=== PATIENT | male | born 1995 | race Caucasian/White ===

== ENCOUNTER 2021-04-29 10:58 | Emergency (ER) | payer MEDICAID, SELFPAY ==
[~2021-04-29] VITALS: Ht 165.1 cm; Wt 92.5 kg
[2021-04-29] MEDS ORDERED: CALCIUM CHLORIDE 1 GM/10 ML DISP.SYRIN (14 mEq Ca++/SYR) IVP ONE (10:59)
[2021-04-29] MEDS ORDERED: EPINEPHrine JECT 0.1 MG/ML SYR IVP ONE (10:59)
[2021-04-29] MEDS ORDERED: SODIUM BICARBONATE 8.4% JECT 50 MEQ/50 ML SYRINGE IVP ONE (10:59)
[2021-04-29] MEDS ORDERED: NACL 0.9% 1,000 ML IV ONE ×2 (11:30)
[2021-04-29] MEDS ORDERED: CEFEPIME 2 GM in D5W 100 ML IV ONE (11:30)
[2021-04-29] MEDS ORDERED: ONDANSETRON HCL 4 MG/2 ML VIAL IVP ONE (11:30)
[2021-04-29] MEDS ORDERED: ACETAMINOPHEN 500 MG TABLET PO ONE (12:00)
[2021-04-29] MEDS ORDERED: fentaNYL CITRATE/PF 100 MCG/2 ML AMP IVP ONE ×2 (12:15→17:00)
[2021-04-29 12:26] LABS: EOSINOPHILS % (AUTO) 0.6 % (0.0-4.0); HEMATOCRIT 24.9 % (36-54); HEMOGLOBIN 8.5 g/dL (14.0-18.0); LYMPHOCYTES # (AUTO) 0.1 K/uL (1.0-5.5); LYMPHOCYTES % (AUTO) 93.9 % (20.5-51.5); MEAN CORPUSCULAR HEMOGLOBIN 32 pg (27-31); MEAN CORPUSCULAR HGB CONC 34 % (32-36); MEAN CORPUSCULAR VOLUME 92 fL (79.0-98.0); MONOCYTES % (AUTO) 2.9 % (1.7-9.3); NEUTROPHILS % (AUTO) 2.6 % (40.0-70.0); RED BLOOD CELL COUNT(AUTO) 2.69 MIL/uL (4.2-6.2); RED CELL DISTRIBUTION WIDTH 16.1 % (9.0-15.0)
[2021-04-29 12:43] LABS: CALCIUM 7.4 mg/dL (8.4-11.0); CREATININE 2.04 mg/dL (0.55-1.30); POTASSIUM 3.5 mmol/L (3.5-5.1)
[2021-04-29 12:48] LABS: TOTAL BILIRUBIN 6.2 mg/dL (0.0-1.0)
[2021-04-29 13:03] LABS: WHITE BLOOD COUNT (AUTO) 0.1 K/uL (4.8-10.8)
--- NOTE | 2021-04-29 13:30 | NUR ---
PT BIB [facility] FOR HYPOTENSION. PT H/O LEUKEMIA,PT FEBRILE AND CHILLING. PT RECEIVED CHEMO LAST WEEK NEXT DUE TOMORROW
--- NOTE | 2021-04-29 13:43 | NUR ---
PT TO RESTROOM W/ASSIST FOR BM.
--- NOTE | 2021-04-29 13:55 | NUR ---
ER at bedside examining patient.
[2021-04-29 14:05] LABS: PLATELET COUNT (AUTO) 9 K/uL (130-430)
--- NOTE | 2021-04-29 15:10 | NUR ---
Patient to ER H1 to gown for evaluation. Side rails.ASSUMED CARE
[2021-04-29 15:13] VITALS: BP_SYST 84
--- NOTE | 2021-04-29 15:29 | NUR ---
Pt placed in NRB mask at this time.
[2021-04-29] MEDS ORDERED: ALLO300T2 PO (15:55)
[2021-04-29] MEDS ORDERED: ACYC400T19 PO (15:55)
[2021-04-29] MEDS ORDERED: ONDA-8 TL (15:55)
[2021-04-29] MEDS ORDERED: VITD2000 PO (15:55)
[2021-04-29] MEDS ORDERED: DEXA5DRO4 EACH EYE (15:55)
[2021-04-29] MEDS ORDERED: PROC-14 PO (15:55)
[2021-04-29] MEDS ORDERED: POSA100T2 PO (15:55)
[2021-04-29] MEDS ORDERED: URSO500T7 PO (15:55)
[2021-04-29] MEDS ORDERED: SIME180C70 PO (15:55)
[2021-04-29] MEDS ORDERED: DIPH25CA83 PO (15:55)
[2021-04-29] MEDS ORDERED: LEVO750T45 PO (15:55)
[2021-04-29] MEDS ORDERED: BACL20 PO (15:55)
--- NOTE | 2021-04-29 15:56 | NUR ---
Medication reconciliation completed with information provided by patient . Any prior medication reconciliation on file was reviewed and corrected.
[2021-04-29] MEDS ORDERED: NOREPINEPHRINE BITARTRATE 4 MG in NS 246 ML IV ONE (16:00)
--- NOTE | 2021-04-29 16:28 | NUR ---
Pt moved to bed 02
--- NOTE | 2021-04-29 16:30 | NUR ---
[employer]roleum of care received at this time,pt A&Ox4, pt c/o severe SOB, fever, weakness and low BP, pt states he has Hx of leukemia diagnosed 3 years ago, labored respirations, O2 88 %, fluids administered at this time, notified. Addendum: 04/29/21 at 1740 by [email or web address] Pt on NRB mask, O2 between 88-92 %
--- NOTE | 2021-04-29 16:30 | NUR ---
Pt arrived with picc line on R upper arm.
--- NOTE | 2021-04-29 16:32 | NUR ---
Levophed 0.1 MCG/KG/MIN started at this time as ordered by Dr Burris for severe hypotension
--- NOTE | 2021-04-29 16:40 | NUR ---
Dr Burris speaking to family at this time , considering intubation, patient and family agreeable for intubation if recommended by MD.
[2021-04-29] MEDS ORDERED: ETOMIDATE 20 MG/ 10 ML VIAL (AMIDATE) IVP ONE (16:45)
[2021-04-29] MEDS ORDERED: VECURONIUM BROMIDE 10 MG/VIAL (NORCURON) IVP ONE (16:45)
--- NOTE | 2021-04-29 16:45 | NUR ---
Pt A&Ox4, Jaylyn rivero MD notified.
--- NOTE | 2021-04-29 16:50 | NUR ---
Patient not known to be of DNR status. Patient medicated with Etomidate 20 mg and Vecoronium 10 mg for sedation prior to placement of ET tube. Respiratory therapy at bedside prior to placement. Size ET tube 7.[address] Burris , 21 to lip. Cuff inflated with 10 cc air. Auscultation of breath sounds over bilateral chest wall. ET tube secured . O2 sats 91 % pulse ox. PCXR ordered to check tube placement.
--- NOTE | 2021-04-29 16:55 | NUR ---
Vent settings AC 12, Volume 450, PEEP 5 , FIO2 100%.
[2021-04-29] MEDS ORDERED: PROPOFOL DRIP 100 ML IV ONE (17:00)
--- NOTE | 2021-04-29 17:10 | NUR ---
Unable to start Propofol at this time due to hypotension , MD notified, pt sedated at this time with previos medications, MD notified
--- NOTE | 2021-04-29 17:25 | NUR ---
Family at bedside.
--- NOTE | 2021-04-29 17:47 | NUR ---
RT at bedside
--- NOTE | 2021-04-29 17:48 | NUR ---
RT at bedside to collect pt's ABG
--- NOTE | 2021-04-29 17:49 | NUR ---
Pt on cadiac arrest at this time, CPR started
--- NOTE | 2021-04-29 17:50 | NUR ---
Epinephrine 0.1 administered at this time .
--- NOTE | 2021-04-29 17:50 | NUR ---
Pt continues on Levophed / rate 0.7 MCG/KG/MIN for persistent hypotension
--- NOTE | 2021-04-29 17:52 | NUR ---
Sodium Bicarb administed by Apple SALAZAR
--- NOTE | 2021-04-29 17:53 | NUR ---
Epinephrine 0.1 administered at this time.
--- NOTE | 2021-04-29 17:54 | NUR ---
Calcium IVP administered at this time
--- NOTE | 2021-04-29 17:56 | NUR ---
pulse noted on L femoral area, MD notified.
--- NOTE | 2021-04-29 18:11 | NUR ---
Cardiac arrest, CPR started at this time
--- NOTE | 2021-04-29 18:11 | NUR ---
Epi 0.1 mg administered at this time.
--- NOTE | 2021-04-29 18:12 | NUR ---
Bicarb IVP administered at this time
[2021-04-29 18:14] VITALS: BP_SYST 52
--- NOTE | 2021-04-29 18:18 | NUR ---
Epinephrine 0.1 mg administered IVP
--- NOTE | 2021-04-29 18:18 | NUR ---
CPR in progress, family at bedside
--- NOTE | 2021-04-29 18:48 | NUR ---
Patient at this time, family at bedside
--- NOTE | 2021-04-29 18:50 | NUR ---
Gisella SALAZAR notified about patient .
--- NOTE | 2021-04-29 19:09 | NUR ---
[facility] procurement agency contacted by toribio SALZAAR . Body was released by Sarah with reference number [id number].
--- NOTE | 2021-04-29 19:12 | NUR ---
[facility] Department of Diagnostic Technician called contacted by rKupa SALAZAR . 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
--- NOTE | 2021-04-29 19:36 | NUR ---
Dr Sarah Snyder notified by Dr Burris about patient .
== END 2021-04-29 18:48 ==
LOC: SED 10:58
DX: A41.9 Sepsis, unspecified organism (principal); R65.20 Severe sepsis without septic shock; R00.0 Tachycardia, unspecified; D61.818 Other pancytopenia; R11.2 Nausea with vomiting, unspecified; N17.9 Acute kidney failure, unspecified; E83.51 Hypocalcemia; E87.2 Acidosis; R73.9 Hyperglycemia, unspecified; Z20.822 Contact with and (suspected) exposure to COVID-19
CPT/HCPCS: 31500; 36415; 71045; 76700; 80053; 82962; 83605; 83690; 85025; 87040; 87086; 87426; 93005; 94640; 96361; 96365; 96367; 96375; 99285; J0171; J0692; J2405; J3010; J7030; J7060; 94002; J2704